=== PATIENT | female | born 1990 | race Caucasian/White ===

== ENCOUNTER → 2018-03-16 10:04 | Outpatient (CLI) | payer BC, SELFPAY ==
--- NOTE | 2018-03-16 10:15 | XR_ITS ---
EXAM: XR lumbar spine min 4V HISTORY: Low back pain ITS.REASON: LUMBAGO ORDERING PHYSICIAN: Yani Mccann PATIENT AGE: 27 years COMPARISON: FINDINGS: Normal alignment. No fracture or dislocation. No lytic or blastic change. There is decrease in the disc space at L5-S1 with small endplate osteophytes inferiorly at L5. IMPRESSION: Degenerative disc disease L5-S1
== END ==
PROVIDERS: PCP Nurse Practitioner Family; Visit Provider Nurse Practitioner Family
DX: M54.42 Lumbago with sciatica, left side (principal); M54.41 Lumbago with sciatica, right side
CPT/HCPCS: 72110

== ENCOUNTER → 2021-12-17 17:24 | Outpatient (CLI) | payer BC, SELFPAY | PROVIDERS: PCP Family Medicine; Visit Provider Nurse Practitioner | DX: U07.1 COVID-19 (principal) | CPT/HCPCS: C9803; U0003; U0005 ==

== ENCOUNTER → 2022-02-06 13:43 | Outpatient (REF) | payer BC, SELFPAY ==
--- NOTE | 2022-02-06 13:48 | XR_ITS ---
FINAL REPORT CLINICAL HISTORY: REACTION TO TB TEST FINDINGS: Two views of the chest were obtained. The heart size and pulmonary vascularity are within normal limits. The mediastinum is normal. No acute pulmonary abnormality is identified. There is no active mycobacterial/fungal disease. There is no pneumothorax. The bony thorax is intact. IMPRESSION: No active cardiopulmonary disease. Reviewed, Interpreted and Dictated by Aj Wallis III, MD Transcribed by Dominique Morales Authenticated by Aj Wallis III, MD on 02/06/2022 02:52:52 PM [facility]
== END ==
LOC: RAD 13:43
PROVIDERS: PCP Family Medicine; Visit Provider Nurse Practitioner
DX: R76.11 Nonspecific reaction to tuberculin skin test without active tuberculosis (principal)
CPT/HCPCS: 71046

== ENCOUNTER → 2022-04-22 07:36 | Outpatient (CLI) | payer OTHER, SELFPAY ==
[2022-04-22 08:41] LABS: Basophils # 0.1 K/mm3 (0-0.2); Eosinophils # 0.2 K/mm3 (0.0-0.4); Eosinophils % 1.9 % (0.1-12.0); Hematocrit 41.1 % (37.0-47.0); Hemoglobin 14.1 g/dL (12.2-16.2); Lymphocytes # 2.3 K/mm3 (0.7-4.5); Mean Corpuscular HGB Conc 34.4 g/dL (31.8-35.4); Mean Corpuscular Hemoglobin 31.1 pg (27.0-31.2); Mean Corpuscular Volume 90.4 fl (81-99); Mean Platelet Volume 8.3 fl (7.4-10.4); Monocytes # 0.4 K/mm3 (0.1-1.0); Monocytes % 3.5 % (1.7-9.3); Neutrophils # 7.1 K/mm3 (1.8-7.8); Neutrophils % 70.7 % (37.0-80.0); Platelet Count 282 K/mm3 (142-424); Red Blood Count 4.55 M/mm3 (4.20-5.40); Red Cell Distribution Width 13.3 % (11.5-17.5); White Blood Count 10.1 K/mm3 (4.8-10.8)
[2022-04-22 08:59] LABS: Alanine Aminotransferase 11 U/L (12-78); Albumin Level 3.9 g/dl (3.5-5.0); Albumin/Globulin Ratio 1.4 (1.1-1.8); Alkaline Phosphatase 73 U/L (38-126); Anion Gap 11.4 mEq/L (5-15); Aspartate Amino Transferase 19 U/L (14-36); Blood Urea Nitrogen 6 mg/dl (7-17); Calcium 9.4 mg/dl (8.4-10.2); Carbon Dioxide 26 mmol/L (22.0-30.0); Chloride 107 mmol/L (98-107); Cholesterol 221 mg/dl (140-200); Estimated Glomerular Filt Rate 117 ml/min (>60); GFR (African American) 142 ML/MIN (>60); Globulin 2.7 g/dL (1.3-3.2); Glucose 112 mg/dl (74-100); HDL Cholesterol 37 mg/dl (40-60); Potassium 4.4 mmoL/L (3.5-5.1); Sodium 140 mmol/L (136-145); Total Protein,Serum 6.6 g/dl (6.3-8.2); Triglycerides 238 mg/dl (30-150); VLDL Cholesterol 48 mg/dL (0-40)
[2022-04-22 09:09] LABS: Bilirubin,Total < 0.1 mg/dl (0.2-1.3)
[2022-04-22 09:10] LABS: Hemoglobin A1C 5.1 % (4.0-6.0)
[2022-04-22 09:12] LABS: Direct LDL Cholesterol 138.64 mg/dL (100-129)
[2022-04-22 09:18] LABS: Free Thyroxine Index 2.7 ug/dL (5.93-13.13); T4 (Thyroxine) 11.1 ug/dl (5.53-11.0); Triiodothryronine (T3) Uptake 24 % (23.5-40.5)
[2022-04-22 09:25] LABS: Iron 47 ug/dL (37-170)
[2022-04-22 09:31] LABS: Thyroid Stimulating Hormone 2.43 uIU/mL (0.465-4.68)
[2022-04-22 09:34] LABS: Total Iron Binding Capacity 334 ug/dL (265-497)
[2022-04-22 09:52] LABS: Vitamin B12 776 pg/mL (239-931)
[2022-04-30 10:46] LABS: 1,25 Dihydroxy Vitamin D 55 pg/mL (.); 1,25-Dihydroxy, Vitamin D-2 <10 pg/mL (.); 1,25-Dihydroxy, Vitamin D-3 55 pg/mL (.)
== END ==
PROVIDERS: PCP Nurse Practitioner Family; Visit Provider Nurse Practitioner Psychiatric/Mental Health
DX: Z00.00 Encounter for general adult medical examination without abnormal findings (principal); Z79.899 Other long term (current) drug therapy
CPT/HCPCS: 36415; 80053; 80061; 82607; 82652; 83036; 83540; 83550; 84436; 84443; 84479; 85025

== ENCOUNTER → 2022-07-03 19:48 | Outpatient (CLI) | payer OTHER, SELFPAY ==
[2022-07-15 12:53] VITALS: BMI 29.9
== END ==
LOC: INF 19:50 → UTC.OUT 07-15 14:31
PROVIDERS: PCP Nurse Practitioner Family; Visit Provider Nurse Practitioner Family
DX: J06.9 Acute upper respiratory infection, unspecified (principal)
CPT/HCPCS: 96372; J0696

== ENCOUNTER → 2022-08-15 12:35 | Outpatient (CLI) | payer OTHER, SELFPAY | PROVIDERS: PCP Nurse Practitioner Family; Visit Provider Nurse Practitioner | DX: M54.50 Low back pain, unspecified (principal) | CPT/HCPCS: 96372 ==

== ENCOUNTER → 2023-01-19 07:56 | Outpatient (CLI) | payer OTHER, SELFPAY ==
[2023-01-19 09:32] VITALS: BMI 34.9
== END ==
PROVIDERS: PCP Nurse Practitioner Family; Visit Provider Family Medicine
DX: Z71.3 Dietary counseling and surveillance (principal); E66.9 Obesity, unspecified; Z68.34 Body mass index [BMI] 34.0-34.9, adult
CPT/HCPCS: 97802

== ENCOUNTER → 2023-03-23 09:50 | Outpatient (CLI) | payer OTHER, SELFPAY ==
[2023-03-23 09:20] LABS: Basophils % 0.4 % (0.1-2.0); Eosinophils # 0.2 K/mm3 (0.0-0.4); Eosinophils % 2.8 % (0.1-12.0); Hematocrit 40.3 % (37.0-47.0); Hemoglobin 13.9 g/dL (12.2-16.2); Lymphocytes # 1.8 K/mm3 (0.7-4.5); Lymphocytes % 22.4 % (10-50); Mean Corpuscular HGB Conc 34.4 g/dL (31.8-35.4); Mean Corpuscular Hemoglobin 30.3 pg (27.0-31.2); Mean Corpuscular Volume 88.3 fl (81-99); Mean Platelet Volume 9.9 fl (7.4-10.4); Monocytes # 0.5 K/mm3 (0.1-1.0); Monocytes % 6.8 % (1.7-9.3); Neutrophils # 5.4 K/mm3 (1.8-7.8); Neutrophils % 67.6 % (37.0-80.0); Platelet Count 246 K/mm3 (142-424); Red Blood Count 4.57 M/mm3 (4.20-5.40); Red Cell Distribution Width 13.1 % (11.5-17.5)
[2023-03-23 09:39] LABS: Alanine Aminotransferase 19 U/L (12-78); Albumin Level 4.4 g/dl (3.5-5.0); Albumin/Globulin Ratio 1.8 (1.1-1.8); Alkaline Phosphatase 61 U/L (38-126); Anion Gap 14.6 mEq/L (5-15); Aspartate Amino Transferase 24 U/L (14-36); Bilirubin,Total 0.3 mg/dl (0.2-1.3); Blood Urea Nitrogen 5 mg/dl (7-17); Calcium 9.7 mg/dl (8.4-10.2); Carbon Dioxide 25 mmol/L (22.0-30.0); Chloride 104 mmol/L (98-107); Chol/HDL Ratio 4.8 (1-3.5); Cholesterol 155 mg/dl (140-200); Estimated Glomerular Filt Rate 117 ml/min (>60); GFR (African American) 141 ML/MIN (>60); Globulin 2.5 g/dL (1.3-3.2); Glucose 88 mg/dl (74-100); HDL Cholesterol 32 mg/dl (40-60); Potassium 3.6 mmoL/L (3.5-5.1); Sodium 140 mmol/L (136-145); Total Protein,Serum 6.9 g/dl (6.3-8.2); Triglycerides 113 mg/dl (30-150); VLDL Cholesterol 23 mg/dL (0-40)
[2023-03-23 09:48] LABS: Hemoglobin A1C 4.9 % (4.0-6.0)
[2023-03-23 09:50] LABS: Direct LDL Cholesterol 109.02 mg/dL (100-129)
[2023-03-23 10:10] LABS: Thyroid Stimulating Hormone 1.34 uIU/mL (0.465-4.68)
== END ==
PROVIDERS: PCP Nurse Practitioner Family; Visit Provider Nurse Practitioner Family
DX: R53.83 Other fatigue (principal); E78.5 Hyperlipidemia, unspecified; I10 Essential (primary) hypertension; Z13.1 Encounter for screening for diabetes mellitus; Z79.899 Other long term (current) drug therapy
CPT/HCPCS: 80053; 80061; 83036; 84443; 85025

== ENCOUNTER → 2023-06-25 09:52 | Outpatient (CLI) | payer OTHER, SELFPAY ==
--- NOTE | 2023-06-25 09:52 | NM_ITS ---
FINAL REPORT TECHNIQUE: Sequential anterior images were obtained after the ingestion of 2 eggs, 2 pieces of toast, and water radiolabeled with 0.516 mCi technetium 99M sulfur colloid. CLINICAL HISTORY: chronic nausea, vomiting undigested food 10:15am 0.516 mci tc sulfur colloid inj into 2 eggs, 2 toast and water COMPARISON: None FINDINGS: GASTRIC EMPTYING SCAN Static images show normal emptying of the stomach into the small bowel. Based on the time activity curve, the estimated half-emptying time is 93 minutes which is mildly abnormal. IMPRESSION: Mildly abnormal gastric emptying study. Reviewed, Interpreted and Dictated by Ousmane Knott MD Transcribed by Leila Singh Authenticated and . [facility]
== END ==
PROVIDERS: PCP Nurse Practitioner Family; Visit Provider Nurse Practitioner Family
DX: R11.2 Nausea with vomiting, unspecified (principal)
CPT/HCPCS: 78264; A9541

== ENCOUNTER 2024-02-24 08:00 | Emergency (ER) | payer OTHER, SELFPAY ==
[2024-02-24 08:05] VITALS: BP 135/95; PULSE 87; RESP 18; TEMP 36.6; O2SAT 99; BMI 31.4
--- NOTE | 2024-02-24 08:27 | ED_ITS ---
Discharge Plan Disposition Patient Disposition: Home, Self-Care Condition: Good Prescriptions Prescriptions: New cyclobenzaprine 10 mg Tablet 10 mg PO BID PRN (Reason: Muscle Spasm) Qty: 20 0RF methylprednisolone 4 mg Tablets,Dose Pack 4 mg PO DIRECTED 6 Days Qty: 21 0RF Rx Instructions: Take 1 pack as directed for 6 days No Action desvenlafaxine succinate [Pristiq] 100 mg tablet extended release 24 hr 50 mg PO DAILY Qty: 30 3RF PNV no.365-gslr-exvcw acid 28 mg iron- 800 mcg tablet 1 tab PO DAILY semaglutide 2 mg/dose (8 mg/3 mL) pen injector 2 mg SQ WEEKLY Qty: 3 2RF omeprazole 20 mg capsule,delayed release(DR/EC) 20 mg PO DAILY Qty: 90 1RF nebivolol [Bystolic] 2.5 mg tablet See Rx Instructions .ROUTE .COMPLEX Rx Instructions: TAKE ONE TABLET BY MOUTH EVERY DAY Referrals Follow up/Referrals: Monique Stoll APRN [Primary Care Provider] - See instructions Activity Restrictions/Add. Instructions Additional Instructions/Restrictions: Go home and rest. It would be best if you rested tomorrow too. No heavy lifting. No twisting. Take the oral medications as directed. The muscle relaxer (cyclobenzaprine--Flexeril) will make you drowsy, so don't drive or operate heavy machinery after taking it. Don't start the oral steroids (medrol dose pack) until tomorrow, since you had the shots in here today. Follow up with your regular doctor. GO TO THE ER FOR ANY WORSENING SYMPTOMS OR CONCERN, ESPECIALLY BOWEL OR BLADDER ISSUES, SADDLE AREA NUMBNESS, FEVER, ETC Clinical Impressions Clinical Impression: Low back pain with sciatica Instructions Patient Instructions: DI for Low Back Pain, DI for Sciatica, Ketorolac Injection, Dexamethasone Injection Discharge ED Provider: Ivan Lopez [facility] General Stated complaint: Back Pain Mode of Arrival: Ambulatory Source of Information: Patient Limitations: No Limitations Time Seen by Provider: 02/24/24 08:27 Description of Symptoms (Recalled from Triage Doc. by RN): Pt's symptoms are lower back pain. HEENT Symptoms (Recalled from RN notes): No Resp Symptoms (Recalled from RN notes): No Skin Symptoms (Recalled from RN notes): No MS Symptoms (Recalled from RN notes): Yes Functional Status (Recalled from RN notes): n/a History of Present Illness Provider Complaint: She states that for the past 3 days she has had worsening low back pain that radiates down her right leg. She denies any recent trauma or injury. She denies any urinary complaints. She has had similar episodes of this pain before. Related Data Home Medications Medication Instructions Recorded Confirmed vitamins no.121-iron 28 1 tab PO DAILY 04/23/23 02/24/24 mg-folic acid 800 mcg tablet nebivolol 2.5 mg tablet (Bystolic) See Rx Instructions .Route .COMPLEX 02/24/24 02/24/24 Previous Rx's Medication Instructions Recorded semaglutide 2 mg/dose (8 mg/3 mL) 2 mg (0.75 mL) SQ WEEKLY #3 mL 06/18/23 subcutaneous pen injector desvenlafaxine succinate 100 mg 50 mg (1/2 x 100 mg) PO DAILY #30 08/20/23 tablet,extended release 24 hr tabs (Pristiq) omeprazole 20 mg capsule,delayed 20 mg PO DAILY #90 caps 09/23/23 release cyclobenzaprine 10 mg tablet 10 mg PO BID PRN Muscle Spasm #20 02/24/24 tabs methylprednisolone 4 mg tablets in 4 mg PO DIRECTED 6 days #21 tabs 02/24/24 a dose pack Allergies Allergy/AdvReac Type Severity Reaction Status Date / Time No Known Allergies Allergy Verified 02/24/24 08:17 Worker's Comp Is this a Worker's Comp case?: No [facility] Disclaimer: The information contained in this section may have been updated after the patient was seen, as this information can be updated by other users. Medical History (Updated 02/24/24 @ 08:41 by Ivan Lopez APRN) Major depressive disorder BMI 30.0-30.9,adult BMI 31.0-31.9,adult BMI 32.0-32.9,adult BMI 33.0-33.9,adult Establishing care with new doctor, encounter for Normal vaginal delivery BMI 34.0-34.9,adult Generalized anxiety disorder Surgical History History of appendectomy Hx of tonsillectomy Family History Father Diabetes type 2 Family/Other Cancer ovarian Mother Thyroid disorder hypothyroidism Grandmother Diabetes Type 2 Hypertension Social History Smoking Status: Current every day smoker tobacco type: e-cigarettes alcohol intake: never substance use type: denies use current occupational status: employed Travel in the last 8 weeks: None household members: spouse and children number of children: 3 ROS Obtained: Yes All systems reviewed & no additional complaints except as documented Constitutional Constitutional: Denies chills and Denies fever(s) Eyes Eyes: Denies eye discharge ENT Ears, Nose, Mouth, and Throat: Denies dizziness, Denies otalgia, Denies neck pain and Denies sore throat Cardiovascular Cardiovascular: Denies chest pain Respiratory Respiratory: Denies shortness of breath, Denies chest congestion, Denies cough, Denies stridor and Denies wheezing Gastrointestinal Gastrointestingal: Denies nausea or vomiting Genitourinary Female Genitourinary: Reports as per HPI, Denies dysuria, Denies urinary frequency, Denies urinary incontinence, Denies urinary hesitancy and Denies urinary urgency Musculoskeletal Musculoskeletal: Reports as per HPI, Reports back pain and Denies neck pain Integumentary/Breasts Skin/Breast: Denies rash Neurologic Neurologic: Denies dizziness, Denies paresthesias and Reports radicular pain Allergic/Immunologic Allergic/Immunologic: Denies wheezing Physical Exam General General appearance: alert and in no apparent distress Head Head exam: atraumatic, normocephalic and normal inspection Eye Eye exam: Present normal appearance, PERRL and EOMI ENT ENT exam: Present normal exam, normal oropharynx, mucous membranes moist, TM's normal bilaterally and normal external ear exam Neck Neck exam: Present normal inspection, full ROM and trachea midline; Absent meningismus or lymphadenopathy Chest Chest inspection: Present normal inspection and symmetric chest wall rise; Absent tenderness Respiratory Respiratory exam: Present normal lung sounds bilaterally; Absent respiratory distress Cardiovascular Cardiovascular exam: Present regular rate and normal rhythm; Absent JVD Abdominal Exam Abdominal exam: Present soft and normal bowel sounds; Absent distention, tenderness or guarding Extremities Exam Extremities exam: Present normal inspection, full ROM and normal capillary refill; Absent calf tenderness Back Exam Back exam: Present normal inspection; Absent tenderness Neurological Exam Neurological exam: Present alert, oriented X3, CN II-XII intact, normal gait and reflexes normal; Absent motor sensory deficit Expanded Neurological Exam Cranial nerves: Normal: EOM function (II, III, IV, ), facial sensation (V), facial palsy (VII), gag reflex (IX), spinal accessory function (XI) and tongue deviation (XII) Cerebellar function: normal gait Motor strength - LUE: 5/5 Motor strength - RUE: 5/5 Motor strength - LLE: 5/5 Motor strength - RLE: 5/5 Sensory exam upper extremity: Normal: light touch and 2 point discrimination Sensory exam lower extremity: Normal: light touch and 2 point discrimination DTR: 2+: biceps (L), biceps (R), patellar (L), patellar (R), Achilles tendon (L) and Achilles tendon (R) Spinal cord function: Absent saddle anesthesia Psychiatric Psychiatric exam: Present normal affect and normal mood Skin Skin exam: Present warm, dry, intact and normal color Lymphatic Lymphatic Findings: no adenopathy Medical Decision Making Medical Records Medical records reviewed: No I reviewed the patient's medical records. Tree Inquiry Pt receiving controlled substance: No Vital Signs: 02/24/24 08:05 Temperature 97.9 F Temperature Source Oral Pulse Rate [Right Radial] 87 Respiratory Rate 18 Blood Pressure [Right Arm] 135/95 H Blood Pressure Mean [Right Arm] 108 Blood Pressure Source [Right Arm] Automatic Cuff Blood Pressure Position [Right Arm] Sitting 02 Sat by Pulse Oximetry 99 Oxygen Delivery Method Room Air
[2024-02-24] MEDS: DEXAMETHASONE 4MG/ML 1ML VIAL 8 MG IM (08:33)
[2024-02-24] MEDS: KETOROLAC 60MG/2ML VIAL 60 MG IM (08:33)
[2024-02-24 08:50] VITALS: BP 135/95; PULSE 87; RESP 18; TEMP 36.6; O2SAT 99
== END 2024-02-24 08:50 | disposition home or self-care (01) ==
PROVIDERS: Emergency Provider Nurse Practitioner Family; PCP Nurse Practitioner Family
DX: M54.41 Lumbago with sciatica, right side (principal); F17.210 Nicotine dependence, cigarettes, uncomplicated
CPT/HCPCS: 96372; 99204; 99212; G0463

== ENCOUNTER 2025-01-30 13:49 | Outpatient (CLI) | payer OTHER, SELFPAY ==
[2025-01-30 13:36] LABS: Microscopic, Urine URINE MICROSCOPIC (MICROSCOPIC)
[2025-01-30 14:00] LABS: Basophils % 0.3 % (0.1-2.0); Eosinophils # 0.1 K/mm3 (0.0-0.4); Eosinophils % 0.4 % (0.1-12.0); Hematocrit 39.8 % (37.0-47.0); Hemoglobin 14.1 g/dL (12.2-16.2); Lymphocytes # 3.1 K/mm3 (0.7-4.5); Lymphocytes % 25.7 % (10-50); Mean Corpuscular HGB Conc 35.4 g/dL (31.8-35.4); Mean Corpuscular Hemoglobin 31.5 pg (27.0-31.2); Mean Corpuscular Volume 88.8 fl (81-99); Mean Platelet Volume 10.6 fl (7.4-10.4); Monocytes # 0.6 K/mm3 (0.1-1.0); Monocytes % 5.2 % (1.7-9.3); Neutrophils # 8.2 K/mm3 (1.8-7.8); Neutrophils % 68.4 % (37.0-80.0); Platelet Count 244 K/mm3 (142-424); Red Blood Count 4.48 M/mm3 (4.20-5.40); Red Cell Distribution Width 11.9 % (11.5-17.5); White Blood Count 12.1 K/mm3 (4.8-10.8)
[2025-01-30 14:26] LABS: Albumin Level 4.8 g/dl (3.5-5.0); Chloride 102 mmol/L (98-107)
[2025-01-30 14:27] LABS: Potassium 4.5 mmoL/L (3.5-5.1); Sodium 138 mmol/L (136-145)
[2025-01-30 14:29] LABS: Alanine Aminotransferase 23 U/L (12-78); Albumin/Globulin Ratio 2.3 (1.1-1.8); Alkaline Phosphatase 61 U/L (38-126); Anion Gap 15.5 mEq/L (5-15); Aspartate Amino Transferase 34 U/L (14-36); Bilirubin,Total 0.7 mg/dl (0.2-1.3); Blood Urea Nitrogen 7 mg/dl (7-17); Carbon Dioxide 25 mmol/L (22.0-30.0); Cholesterol 206 mg/dl (140-200); Estimated Glomerular Filt Rate 115 ml/min (>60); GFR (African American) 139 ML/MIN (>60); Globulin 2.1 g/dL (1.3-3.2); Iron 116 ug/dL (37-170); Phosphorous 2.7 mg/dl (2.5-4.5); Total Protein,Serum 6.9 g/dl (6.3-8.2); Triglycerides 125 mg/dl (30-150); VLDL Cholesterol 25 mg/dL (0-40)
[2025-01-30 14:30] LABS: Calcium 9.5 mg/dl (8.4-10.2); Chol/HDL Ratio 4.2 (1-3.5); Glucose 65 mg/dl (74-100); HDL Cholesterol 49 mg/dl (40-60)
[2025-01-30 14:40] LABS: Total Iron Binding Capacity 310 ug/dL (265-497)
[2025-01-30 14:47] LABS: 25-OH Vitamin D, Total 26.4 ng/mL (30-100)
[2025-01-30 14:48] LABS: Free T4 (Free Thyroxine) 1.02 ng/dl (0.78-2.19)
[2025-01-30 14:52] LABS: Direct LDL Cholesterol 125.22 mg/dL (100-129)
[2025-01-30 15:02] LABS: Thyroid Stimulating Hormone 2.25 uIU/mL (0.465-4.68)
[2025-01-30 15:06] LABS: Ferritin 72.1 ng/ml (6.24-137)
[2025-01-30 15:15] LABS: HIV Combo NEGATIVE (Negative)
[2025-01-30 15:20] LABS: Appearance,Urine CLEAR (Clear); Bilirubin,Urine Negative (Negative); Blood, Urine Negative (Negative); Color,Urine YELLOW (Yellow); Glucose,Urine (UA) Negative (Negative); Hepatitis C Ab Qual. W/ RFX NEGATIVE (Negative); Ketones,Urine Negative (Negative); Leukocyte Esterase,Urine Negative (Negative); Nitrate,Urine Negative (Negative); PH,Urine 7.5 (5.0-8.5); Protein,Urine Negative (Negative); Specific Gravity, Urine 1.015 (1.005-1.030); Urobilinogen,Urine 0.2 EU/dl (0.2)
[2025-01-30 15:47] LABS: Bacteria,Urine Trace /lpf; Squamous Epithelial Cell,Urine Occasional #/hpf (0-5)
[2025-01-30 16:32] LABS: Vitamin B12 784 pg/mL (239-931)
== END 2025-01-30 23:59 | disposition home or self-care (01) ==
LOC: LAB.DROPOF 13:49
PROVIDERS: PCP Nurse Practitioner Family; Visit Provider Nurse Practitioner Family
DX: R53.83 Other fatigue (principal); E78.5 Hyperlipidemia, unspecified; Z11.4 Encounter for screening for human immunodeficiency virus [HIV]; Z11.59 Encounter for screening for other viral diseases; F32.9 Major depressive disorder, single episode, unspecified; Z13.1 Encounter for screening for diabetes mellitus; M54.50 Low back pain, unspecified; K21.9 Gastro-esophageal reflux disease without esophagitis; I10 Essential (primary) hypertension; F41.1 Generalized anxiety disorder; G47.33 Obstructive sleep apnea (adult) (pediatric); R41.3 Other amnesia
CPT/HCPCS: 80053; 80061; 81001; 82306; 82607; 82728; 83036; 83540; 83550; 83735; 84100; 84439; 84443; 85025; 86803; 87086; 87389

== ENCOUNTER 2025-02-07 09:54 | Outpatient (CLI) | payer OTHER, SELFPAY ==
--- NOTE | 2025-02-07 17:15 | MR_ITS ---
FINAL REPORT TECHNIQUE: Multiplanar MR without contrast CLINICAL HISTORY: chronic low back pain with radiculopathy RIGHT SIDED BACK PAIN X MANY YEARS FEELS LIKE A SPASM PAIN GOES FROM HIP TO KNEE FINDINGS: Sagittal images show normal vertebral height. Alignment is normal. Marrow signal changes at the L4-5 and L5-S1 endplates related to discogenic disease. L1-2: Unremarkable L2-3: Unremarkable L3-4: Unremarkable L4-5: Moderate annular disc bulge with a moderate left paracentral disc protrusion. Central canal stenosis with left L5 nerve root compression. L5-S1: Moderate annular disc bulge and facet arthropathy. Borderline central canal stenosis and mild neuroforaminal narrowing. IMPRESSION: Degenerative disease most pronounced at L4-5 with canal stenosis and left L5 nerve root compression. Reviewed, Interpreted and Dictated by Alicia Arroyo MD Transcribed by Perla Kothari Authenticated and [facility]
== END 2025-02-07 23:59 | disposition home or self-care (01) ==
LOC: RAD 09:54
PROVIDERS: PCP Nurse Practitioner Family; Visit Provider Nurse Practitioner Family
DX: M54.50 Low back pain, unspecified (principal)
CPT/HCPCS: 72148

== ENCOUNTER 2025-02-27 17:00 | Outpatient (RCR) | payer OTHER, SELFPAY ==
--- NOTE | 2025-02-23 16:12 | HMH.PTOPEV ---
PT Outpatient Evaluation Rehab PT Outpatient Evaluation Start: 02/23/25 07:48 Freq: Status: Active Protocol: Document 02/23/25 12:59 BONIFACIO (Rec: 02/23/25 16:10 BONIFACIO [id number]) E-signed By Rl Weber, PT Outpatient Therapy Subjective History Subjective History Pt is a 34 yof who is referred to [facility] outpatient PT with complaints of R sided LBP and R sided hip pain. The pt reports that her pain began nearly 7 years ago after the of her first child. She reports that the pain will very rarely shoot down her R leg but is almost constantly aching in the right side of her lower back and R hip. She reports that the pain in her R hip feels very deep. The pt underwent and MRI which showed L5 nerve root compression on the left side, however, the pt adamantly states that she has no issue whatsoever with her left side. The pt reports that her pain always worsens a week prior to menses and during menses, then will lessen for a few weeks. The pt reports that any position in which she is bent, especially for longer periods, such as placing an IV will exacerbate her symptoms. PMH: HTN, GERD, Anxiety, Depression Occupation: ER Nurse New diagnosis of cancer in past 12 No months? Chief Complaint Pain Symptom Type Ache,Sharp Symptoms Relieved By Ice,OTC Meds Symptoms Aggravated By Sitting,Bending/Stooping, Physical Activity,Walking Prior Functional Limitations None Current Functional Limitations Lifting,Housework,Standing, Sitting,Squatting,Walking, Stairs Symptom Description Constant but Variable,Activity Dependent Level of pain today (0-10) 4 Pain scale - at its best (0-10) 2 Pain scale - at its worst (0-10) 7 Lumbopelvic Eval Posture Thoracic Spine Posture Standing Position Neutral Lumbar Spine Posture Standing Position Neutral Assistive device Assistive Devices None / NA Palapation tenderness right lumbar spinal tenderness Yes: L4-S1 TTP 3/4 paraspinal tenderness Yes: L4-S1 TTP 3/4 Lumbar/Sacral Palpation Findings Tenderness Accessory Movement L4 right L5 right S1 right Range of Motion Lumbar Spine Active Flexion Range of 75% Motion (degrees) Lumbar Spine Active Extension Range of 50% Motion (degrees) Left Lumbar Spine Lateral Flexion Active 75% Range of Motion (degrees) Right Lumbar Spine Lateral Flexion 75% Active Range of Motion (degrees) Lumbar Spine ROM Limitations Soft Tissue Tightness,Pain Manual Muscle Test Right Knee Extension Strength Grade 4- Good- Knee Flexion Strength Grade 4- Good- Hip Flexion Strength Grade 3+ Fair+ Hip Abduction Strength Grade 2 Poor Hip Adduction Strength Grade 2+ Poor+ Hip Extension Strength Grade 2 Poor DTR Rt Patellar 2+ Lt Patellar 2+ Rt Gastroc/Soleus 2+ Lt Gastroc/Soleus 2+ Altered Sensation Bilateral Comment Intact to LT globally Special Tests Lumbar Spine Screen Positive Forward Bending Test- Sitting Negative Left,Negative Right Hip Scouring (Quadrant) Test Positive Right Hip Georgi (LIDIA) Test Positive Right Hip Jonh Test Negative Right Hip Piriformis Test Negative Right Hip Bowstring (Cram) Test Negative Right Sciatic Nerve Tension Test Negative Right Reverse Sciatic Nerve Tension Test Negative Right Hip 90-90 Straight Leg Raise Test Negative Right Unilateral Straight Leg Raise (Lasegue) Negative Right Test Crossed Straight Leg Raise Test Negative Left,Negative Right Srikanth Test Negative Hip Sania's Test Negative Right Sacroiliac Joint Compression Test Positive Right Sacroiliac Joint Distraction Test Positive Right Oswestry Index Section 1 Pain Intensity The pain is moderate and does not vary much Section 2 Personal Care (Washing,Dresing) increase the pain, but I manage not to change my way of doing it Section 3 Lifting I can lift heavy weights, but it gives me extra pain Section 4 Walking I cannot walk more than one mile wihtout increasing pain Section 5 Sitting I can sit in my favorite chair for as long as I like Section 6 Standing I have some pain on standing, but it does not increase with time Section 7 Sleeping Because of my pain, my normal night's sleep is less than 6 hours sleep Section 8 Social Life My social life is normal and gives me no extra pain Section 9 Traveling I get some pain when traveling , but none of my usual forms of travel m Section 10 Changing Degreee of Pain My pain is gradually getting worse Score and Risk Level Oswestry Sc 17 Oswestry Risk Level Moderate Disability Outpatient Therapy Assessment Impairments Problems/Impairmments Palpation Tenderness,Impaired Range of Motion,Impaired Strength,Impaired Walking, Impaired Standing,Impaired Lifting,Impaired Household Care,Impaired Work Activities, Subjective C/O Pain Prognosis Rehab Potential Good Comment w HEP compliance Clinical Impression Consistent with Diagnosis Yes Consistent with SI instability Short Term Goals Number of Weeks 4 Decreased Palpation Tenderness Yes: 1-2/4 TTP Increase Range of Motion Yes: 50-75% Pain-free AROM of Lumbar spine Increase Strength Yes: 3+/5 to R hip/knee Improve Oswestry Score Yes: Mild Disability Decrease Subjective C/O Pain Yes: 10 with above assessment Patient to be Ind w/ HEP Yes Skilled Nursing Goals Number of Weeks 8 Decreased Palpation Tenderness Yes: 0-1/4 to TTP Assessment Above Increase Range of Motion Yes: 0-1/4 to TTP Assessment Above Increase Strength Yes: 4-4+/5 to TTP assessment Above Restore Ability to Lift Objects to Waist Yes: 20# with proper lifting Level mechanics without increasing pain Improve Ability For Household Care Yes: Cook/Clean without increasing pain Improve Tolerance to Work Activities Yes: Normal Day's work without increasing pain Improve Oswestry Score Yes: No disability Decrease Subjective C/O Pain Yes: 2-10 with above assessment Patient to be Ind w/ Advanced HEP Yes Outpatient Therapy Plan of Care Treatment Plan May Include Therapeutic Exercise Including Home Yes Exercise Program Manual Therapy Techniques Yes Neuromuscular Re-education Yes Therapeutic Activities to Return to Yes Previous Functional/Work Level Gait Training Yes ADL/Self Care Education Yes Mechanical Traction Yes Dry Needling Yes Thermal Modalities Yes Electrical Stimulation Yes Manual Lymphatic Drainage Yes Eval/Re-Eval Yes Frequency Times per week 1-2 Duration Number of Weeks 8 Addendums This patient is a candidate for social No or vocational rehab? Patient/Guardian verbally acknowledges Yes understanding of treatment program and consents to further treatment? Patient/Guardian verbally acknowledges Yes understanding of diagnosis, prognosis and goals for treatment? Eval Complexity PT Charges [id number] - Moderate Complexity Shoulder/Elbow Eval Shoulder Objective Measurements Elbow Objective Measurements PHYSICIAN CERTIFICATION: I certify the specified therapy services for Balwinder Brannon are required, authorized, and reviewed every 30 days.
== END 2025-02-27 23:59 | disposition home or self-care (01) ==
LOC: PT 17:00
PROVIDERS: PCP Nurse Practitioner Family; Visit Provider Nurse Practitioner Family
DX: M54.50 Low back pain, unspecified (principal)
CPT/HCPCS: 97110; 97163; 97530

== ENCOUNTER → 2025-03-10 10:51 | Outpatient (CLI) | payer OTHER, SELFPAY | LOC: SL 10:51 | PROVIDERS: PCP Nurse Practitioner Family; Visit Provider Nurse Practitioner Family | DX: R06.83 Snoring (principal); R53.83 Other fatigue | CPT/HCPCS: 95806 ==

== ENCOUNTER 2025-03-13 17:00 | Outpatient (RCR) | payer OTHER, SELFPAY | END 2025-03-15 23:59 | disposition home or self-care (01) | LOC: PT 17:00 | PROVIDERS: PCP Nurse Practitioner Family; Visit Provider Nurse Practitioner Family | DX: M54.50 Low back pain, unspecified (principal) | CPT/HCPCS: 97014; 97110; 97530; G0283 ==

== ENCOUNTER 2025-08-28 10:01 | Outpatient (CLI) | payer OTHER, SELFPAY ==
--- OUTSIDE RECORDS SUMMARY | 2025-08-28 10:10 | XMS_ITS | Clinical Summary ---
Author Organization [facility] Address [address] [place] [address] Care Team Providers Care Information Assurance Engineer Name Role Phone Иван Sauer MD Primary Care Provider + Allergies No known active allergies Medications desvenlafaxine (PRISTIQ) 100 MG 24 hr tablet Take 1 tablet by mouth Daily. 5 Active famotidine (PEPCID) 20 MG tablet Take 1 tablet by mouth Every 12 (Twelve) Hours. 5 Active lidocaine (LIDODERM) 5 % APPLY 1 PATCH TOPICALLY TO THE AFFECTED AREA ONCE DAILY AND LEAVE IN PLACE FOR 12 HOURS, THEN REMOVE AND LEAVE OFF FOR 12 HOURS 5 Active metaxalone (SKELAXIN) 800 MG tablet 1 tablet. 5 Active nebivolol (BYSTOLIC) 2.5 MG tablet 5 Active acetaminophen (TYLENOL) 325 MG tablet Take 2 tablets by mouth Every 6 (Six) Hours As Needed for Mild Pain. Active ibuprofen (ADVIL,MOTRIN) 200 MG tablet Take 1 tablet by mouth Every 6 (Six) Hours As Needed for Mild Pain. Active Active Problems Problem Noted Date Diagnosed Date Routine gynecological examination 10/08/2022 H/O abnormal cervical Papanicolaou smear 022 Overview (10/08/2022): Per patient Resolved Problems Problem Noted Date Diagnosed Date Resolved Date Gestational hypertension wit hout significant proteinuria during in third trimester, antepartum 08/26/2021 10/08/2022 Uterine size date discrepancy 08/02/2021 10/08/2022 First trimester 02/11/2021 History of gestational hypertension 02/11/2021 10/08/2022 Overview (06/26/2021): Baby asa 09/05/2019 10/08/2022 Elevated blood pressure affe cting in third trimester, antepartum 08/30/2019 Hypertension in , antepartum 08/22/2019 02/11/2021 Gestational hypertension 09/15/2017 08/11/2017 09/18/2017 Decreased movement aff ecting management of mother, antepartum 07/16/2017 09/18/2017 Immunizations Immunization Administration Dates Next Due COVID-19 (MODERNA) 1st,2nd,3rd Dose Monovalent 0 03/17/2022,02/19/2022 Family History Medical History Relation Name Comments Diabetes Father JR Other Father JR Respiratory Dis ease Diabetes Mother Keeley Thyroid disease Mother Keeley Cervical cancer Paternal Aunt Relation Name Status Comments Father JR Mother Keeley Paternal Aunt Social History Tobacco Use Types Packs/Day Years Used Date Smoking Tobacco: Former Cigarettes Q uit: 06/2024 Passive Smoke Exposure: Past Smokeless Tobacco: Never Comments:STATES OCCASIONALLY , ONCE A WEEK, TODAY Alcohol Use Standard Drinks/Week Comments No 0 (1 standard drink = 0.6 oz pur e alcohol) AUDIT-C Answer Date Recorded Q1: How often do you have a drink containing alc ohol? Never 11/08/2020 Average Number of Drinks Not on file 021 Frequency of Binge Drinking Not on file 05/2021 Exercise Vital Sign Answer Date Recorde d On average, how many days pe r week do you engage in moderate to strenuous exercise (like a brisk walk)? 0 days 11/08/2020 On average, how many minutes do you engage in exercise at this level? 0 min 11/08/2020 Hunger Vital Sign Answer Date Recorded Within the past 12 months, y ou worried that your food would run out before you got the money to buy more. Never true 11/08/19 21 Within the past 12 months, t he food you bought just didn't last and you didn't have money to get more. Never true 11/08/2020 PRAPARE - Transportation Answer Date Re corded In the past 12 months, has l ack of transportation kept you from medical appointments or from getting medications? No 05/2021 In the past 12 months, has l ack of transportation kept you from meetings, work, or from getting things needed for daily living? No 11/08/2020 Aurora Depression Scale Answer Date Recorded Aurora Depression Scale Total 2 10/11/2021 The thought of harming myself has occurred to me . Never 10/11/2021 Education Answer Date Recorded What is the highest level of school you have completed or the highest degree you have received? Associate degree: academic program 08/25/2021 Comments No Sex and Gender Information Value Date Recorded Sex Assigned at Not on file Legal Sex Female 1:55 PM EDT Gender Identity Not on file Sexual Orientation Not on file Occupation Industry Job Start Date Job End Date Registered Nurse Not on file Not on file Not on file Last Filed Vital Signs Vital Sign Reading Time Taken Comments Blood Pressure 126/84 10/08/2022 8:33 AM EST Pulse 80 08/28/2021 7:57 AM EDT Temperature 35.6 C (96 F) 03/08/2025 8:34 AM EDT Respiratory Rate 18 10/08/2022 8:33 AM EST Oxygen Saturation 98% 08/26/2021 8:00 AM EDT Inhaled Oxygen Concentration - - Weight 88.9 kg (196 lb) 03/08/2025 8:34 AM EDT Height 165.1 cm (5' 5 ) 03/08/2025 8:34 AM EDT Body Mass Index 32.62 03/08/2025 8:34 AM EDT Plan of Treatment Health Maintenance Due Date Last Done Comments TDAP/TD VACCINES (1 - Tdap) 2010 ANNUAL PHYSICAL 11/08/2021 11/08/2020 Annual Gynecologic Pelvic an d Breast Exam 10/09/2023 10/08/2022 INFLUENZA VACCINE 06/02/2025 08/24/2024 PAP SMEAR 10/08/2025 10/08/2022, 11/09/2020 HEPATITIS C SCREENING Completed 03/05/2021 Pneumococcal Vaccine 0-49 Aged Out No longer eligible based on patient's age to complete this topic Procedures Procedure Name Priority Date/Time Associated Diagnosis Comments LIQUID-BASED PAP SMEAR, [facility]) Routine 10/08/2022 9:24 AM EST Routine gynecological examination H/O abnormal cervical Papanicolaou smear OBSTETRIC PANEL Routine 03/05/2021 9:26 AM EDT , unspecified gestational age from Last 3 Months or Most Recently Relevant to Health Maintenance Results * LIQUID-BASED PAP SMEAR, [facility] ([facility]) (10/08/2022 9:24 AM EST) Reference Lab Report [facility] [address] [place] [address] or [phone] Guillaume Veronica M.D., Rn Critical Care PATIENT NAME [facility]ATORY NO[facility] [address] NAKIA BRANNON [id number] AGE SEX SSN CLIENT REF # [id number] 31 1990 F [id number] [facility] JORDAN PEÑA REQUESTING Rik [place] [address] CHARIS NGUYEN DATE COLLECTED DATE RECEIVED DATE REPORTED 10/08/2022 10/08/2022 10/10/2022 ThinPrep Pap with Cytyc Imaging DIAGNOSIS: Negative for intraepithelial lesion or malignancy Multiple factors can influence accuracy of Pap tests; therefore, screening at regular intervals is necessary for early cancer detection. SPECIMEN ADEQUACY: SATISFACTORY FOR EVALUATION Transformation zone is present. SOURCE OF SPECIMEN: CERVICAL/ENDOCERV ICAL SLIDES: 1 CLINICAL HISTORY: Routine gynecological examination H/O abnormal cervical Papanicolaou smear DOT COMPLIANCE SPECIALIST: SWETHA MADSEN (ASCP) CPT CODES: [id number] 10/10/2022 7:08 AM EST [facility] ThinPrep Vial Cervix uteri structure / Unknown Collection / Unknown 10/08/2022 9:24 AM EST 10/08/2022 9:24 AM EST Charis Nguyen AUGER PRESS OPERATOR PATHOLOGY/CYTOLOGY ORDERABLES Final Result [facility]
[address] [place] [address], [place] [phone] * (ABNORMAL) Obstetric Panel (03/05/2021 9:26 AM EDT) Hepatitis B Surface Ag Negative Negative [facility] Hep C Virus Ab <0.1 0.0 - 0.9 s/co ratio [facility] Comment: Negative: < 0.8 Indeterminate: 0.8 - 0.9 Positive: > 0.9 The CDC recommends that a positive HCV antibody result be followed up with a HCV Nucleic Acid Amplification test (125399). RPR Non Reactive Non Reactive [facility] Rubella Antibodies, IgG 6.41 Immune >0.99 index [facility] Comment: Non-immune <0.90 Equivocal 0.90 - 0.99 Immune >0.99 ABO Type A [facility] Rh Factor Positive [facility] Comment: Please note: Prior records for this patient's ABO / Rh type are not available for additional verification. Antibody Screen Negative Negative [facility] WBC 10.1 3.4 - 10.8 x10E3/uL [facility] RBC 4.01 3.77 - 5.28 x10E6/uL [facility] Hemoglobin 12.5 11.1 - 15.9 g/dL [facility] Hematocrit 35.8 34.0 - 46.6 % [facility] MCV 89 79 - 97 fL [facility] MCH 31.2 26.6 - 33.0 pg [facility] MCHC 34.9 31.5 - 35.7 g/dL [facility] RDW 13.0 11.7 - 15.4 % [facility] Platelets 222 150 - 450 x10E3/uL [facility] Neutrophil Rel % 71 Not Estab. % [facility] Lymphocyte Rel % 23 Not Estab. % [facility] Monocyte Rel % 4 Not Estab. % [facility] Eosinophil Rel % 1 Not Estab. % [facility] Basophil Rel % 0 Not Estab. % [facility] Neutrophils Absolute 7.2(H) 1.4 - 7.0 x10E3/uL [facility] Lymphocytes Absolute 2.3 0.7 - 3.1 x10E3/uL [facility] Monocytes Absolute 0.4 0.1 - 0.9 x10E3/uL [facility] Eosinophils Absolute 0.1 0.0 - 0.4 x10E3/uL [facility] Basophils Absolute 0.0 0.0 - 0.2 x10E3/uL [facility] Immature Granulocyte Rel % 1 Not Estab. % [facility] Immature Grans Absolute 0.1 0.0 - 0.1 x10E3/uL [facility] Blood 03/05/2021 9:26 AM EDT 03/06/2021 Narrative [facility] - 03/07/2021 6:08 AM EDT Performed at: - [facility] [id number] Conservator Artifacts: Amarjit Pollock PhD, Phone: [phone] Patient Fasting: N us Anita Doshi APRN LAB BLOOD ORDERABLES Final Result [facility] [address] [place] [address], [place] [phone] [facility] [address] [place] [address], [place] [phone] from Last 3 Months or Most Recently Relevant to Health Maintenance Insurance Advance Directives * CPR (Attempt to Resuscitate) (Latest Code Status on File) Date Activated Date Inactivated Comments 08/26/2021 7:38 PM 08/28/2021 2:23 PM Question Answer Comments Code Status (Patient has no pulse and is not breathing): CPR (Attempt to Resuscitate) Medical Interventions (Patie nt has pulse or is breathing): Full * CPR (Attempt to Resuscitate) Date Activated Date Inactivated Comments 08/26/2021 12:46 AM 08/26/2021 7:38 PM Question Answer Comments Code Status (Patient has no pulse and is not breathing): CPR (Attempt to Resuscitate) Medical Interventions (Patie nt has pulse or is breathing): Full Level Of Support Discussed With: Patient * CPR (Attempt to Resuscitate) Date Activated Date Inactivated Comments 09/06/2019 12:03 AM 09/07/2019 2:17 PM Question Answer Comments Code Status (Patient has no pulse and is not breathing): CPR (Attempt to Resuscitate) Medical Interventions (Patie nt has pulse or is breathing): Full * CPR (Attempt to Resuscitate) Date Activated Date Inactivated Comments 09/05/2019 9:49 AM 09/06/2019 12:03 AM Question Answer Comments Code Status (Patient has no pulse and is not breathing): CPR (Attempt to Resuscitate) Medical Interventions (Patie nt has pulse or is breathing): Full * Full Code Date Activated Date Inactivated Comments 09/16/2017 9:20 PM 09/18/2017 8:58 PM Care Teams Information Assurance Engineer Relationship Specialty Start Date End Date Иван Sauer MD PCP - General Family Medicine 05/04/18
--- OUTSIDE RECORDS SUMMARY | 2025-08-28 10:10 | XMS_ITS | Encounter Summary ---
Author Organization [facility] Address [address] [place] [id number] Care Team Providers Care Auto Bench Mechanic Name Role Phone Иван Sauer MD Primary Care Provider + Reason for Visit * Reason Onset Date Comments Med Refill 03/24/2021 Encounter Details Date Type Department Care Team (Late st Contact Info) Description 03/24/2021 Refill [facility] OBGYN [address] [address] Arianna Heller MD [address] [place] [address] Social History Tobacco Use Types Packs/Day Years Used Date Smoking Tobacco: Former Cigarettes Q uit: 03/15/2017 Smokeless Tobacco: Never Comments:STATES OCCASIONALLY , ONCE [...] things needed for daily living? 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 08/26/2021 08/26/2021 08/26/2021 1:55 PM E DT documented as of this encounter Care Teams Auto Bench Mechanic Relationship Specialty Start Date End Date Иван Sauer MD PCP - General Family Medicine 05/04/18 documented as of this encounter
--- OUTSIDE RECORDS SUMMARY | 2025-08-28 10:10 | XMS_ITS | Encounter Summary ---
Author Organization [facility] Address [address] [place] [address] Care Team Providers Care Inspecting Engineer Name Role Phone Иван Sauer MD Primary Care Provider + Reason for Visit * Reason Onset Date Comments Med Refill 01/08/2022 Encounter Details Date Type Department Care Team (Late st Contact Info) Description 01/08/2022 Refill [facility] OBGYN [address] [place] [address] Rosalind Wilde, INDIRECT SALES REPRESENTATIVE Social History Tobacco Use Types Packs/Day Years [...] things needed for daily living? No 11/08/2020 Perry Depression Scale Answer Date Recorded Perry Depression Scale Total 2 10/11/2021 The thought [...] Diagnoses Not on filedocumented in this encounter Care Teams Inspecting Engineer Relationship Specialty Start Date End Date Иван Sauer MD PCP - General Family Medicine 05/04/18 documented as of this encounter
--- NOTE | 2025-08-28 10:11 | XR_ITS ---
FINAL REPORT CLINICAL HISTORY: low back pain, bilateral hip pain COMPARISON: None FINDINGS: LEFT HIP: 3 views of the left hip demonstrate no acute fracture or dislocation. The joint spaces appear normal. The visualized bony structures are well aligned. No soft tissue abnormality is seen. IMPRESSION: No acute bony abnormality. Reviewed, Interpreted and Dictated by Ousmane Knott MD Transcribed by Natalee English Authenticated and [facility]
--- NOTE | 2025-08-28 10:11 | XR_ITS ---
FINAL REPORT CLINICAL HISTORY: low back pain, bilateral hip pain COMPARISON: None FINDINGS: RIGHT HIP 3 views of the right hip demonstrate no acute fracture or dislocation. The joint spaces appear normal. The visualized bony structures are well aligned. No soft tissue abnormality is seen. IMPRESSION: No acute bony abnormality. Reviewed, Interpreted and Dictated by Ousmane Knott MD Transcribed by Natalee English Authenticated and [facility]
== END 2025-08-28 23:59 | disposition home or self-care (01) ==
LOC: RAD 10:01
PROVIDERS: PCP Nurse Practitioner Family; Visit Provider Nurse Practitioner Family
DX: M54.16 Radiculopathy, lumbar region (principal); M25.551 Pain in right hip; M25.552 Pain in left hip
CPT/HCPCS: 73502

== ENCOUNTER 2025-09-26 14:00 | Outpatient (RCR) | payer OTHER, SELFPAY ==
--- NOTE | 2025-09-12 09:34 | HMH.PTOPEV ---
PT Evaluation Rehab PT Outpatient Evaluation Start: 09/12/25 08:54 Freq: Status: Active Protocol: Document 09/12/25 08:54 BONIFACIO (Rec: 09/12/25 09:33 BONIFACIO [id number]) E-signed By Rl Weber, PT Outpatient Therapy Subjective History Subjective History Pt is a 34 yof who is referred to [facility] outpatient PT with complaints of R sided LBP and R sided hip pain. The pt reports that her pain began nearly 7 years ago after the of her first child. She reports that the pain will very rarely shoot down her R leg but is almost constantly aching in the right side of her lower back and R hip. She reports that the pain in her R hip feels very deep. The pt reports that her pain has began to transition to her L hip as well. The pt reports that her pain will worsen right before her menses. The pt underwent approximately 6 weeks of PT earlier this year, which she reports helped to lessen her symptoms. However, she decided to finish and did not keep up her exercises and now the pain has returned . The pt reports that any position in which she is bent , especially for longer periods, such as placing an IV will exacerbate her symptoms. 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 Chief Complaint Pain,Stiff Symptom Type Ache,Sharp,Dull Symptoms Relieved By OTC Meds Symptoms Aggravated Sitting,Standing,Bending/Stooping,Physical Activity, By Lifting Prior Functional None Limitations Current Functional Lifting,Standing,Sitting,Squatting,Walking,Stairs Limitations Symptom Description Constant but Variable,Activity Dependent Level of pain today 4 (0-10) Pain scale - at its 3 best (0-10) Pain scale - at its 9 worst (0-10) Lumbopelvic Eval Posture Thoracic Spine Neutral Posture Standing Position Lumbar Spine Posture Neutral Standing Position Assistive device Assistive Devices None / NA Gait Observation General Gait Pattern No Deviations/Normal Observation Palapation tenderness bilateral lumbar spinal Yes: L5-S1 tenderness Accessory Movement L5 bilateral S1 bilateral Range of Motion Lumbar Spine Active 100% Flexion Range of Motion (degrees) Lumbar Spine Active 100% Extension Range of Motion (degrees) Left Lumbar Spine 100% Lateral Flexion Active Range of Motion (degrees) Right Lumbar Spine 100% Lateral Flexion Active Range of Motion (degrees) Manual Muscle Test Bilateral Knee Extension 5 Normal Strength Grade Knee Flexion 5 Normal Strength Grade Hip Flexion Strength 4 Good Grade Hip Abduction 3 Fair Strength Grade Hip Adduction 3 Fair Strength Grade Hip Extension 3 Fair Strength Grade DTR Rt Patellar 2+ Lt Patellar 2+ Rt Gastroc/Soleus 2+ Lt Gastroc/Soleus 2+ Altered Sensation Bilateral Comment Intact to LT globally Special Tests Lumbar Spine Screen Positive Hip Scouring ( Positive Left,Positive Right Quadrant) Test Hip Georgi (LIDIA) Positive Left,Positive Right Test Sciatic Nerve Negative Left,Negative Right Tension Test Sacroiliac Joint Positive Left,Positive Right Compression Test Sacroiliac Joint Positive Left,Positive Right Distraction Test Oswestry Index Section 1 Pain Intensity The pain is moderate and does not vary much Section 2 Personal Care ( increase the pain and I find it necessary to change my Washing,Dresing) way of doing it Section 3 Lifting lifting heavy weights off the floor, but I can manage if they are Section 4 Walking I cannot walk more than one mile wihtout increasing pain Section 5 Sitting Pain prevents me from sitting for more than one hour Section 6 Standing I cannot stand more than 1 hour without increasing pain Section 7 Sleeping Because of my pain, my normal night's sleep is less than 6 hours sleep Section 8 Social Life My social life is normal and gives me no extra pain Section 9 Traveling I get extra pain while traveling, but it does not compel me to seek al Section 10 Changing Degreee of My pain is gradually getting worse Pain Score and Risk Level Oswestry Score 23 Oswestry Risk Level Moderate Disability Miscellaneous Dx PT Eval Objective Objective MMT: 2/5 to abdominals Outpatient Therapy Assessment Impairments Problems/ Palpation Tenderness,Impaired Strength,Impaired Walking Impairmments ,Impaired Sitting,Impaired Lifting,Impaired Household Care,Impaired Recreational Activities,Impaired Work Activities,Subjective C/O Pain,Impaired Self Care/Self Management Prognosis Rehab Potential Good Comment w HEP compliance Clinical Impression Consistent with Yes Diagnosis Consistent with SI Instability PT Patient Goals PT Patient Goals PT Short Term In 4 weeks: Patient Goals 1. Patient will report a 48 hour average pain of 5/10 on the numeric pain rating scale to demonstrate improvement in quality of life and increased functional capacity. 2. Patient will improve b/l abdominal, hip abductor and hip extensor strength upon manual muscle testing to 3+ /5 facilitate increased spinal stabilization and improved functional capabilities. 3. Patient will demonstrate a reduction in trigger point sensitivity to Grade 2 with manual palpation to improve comfort during activity and soft tissue mobility. 4. Patient will be able to stand for 30 minutes at one time to demonstrate independence with electric organ assembler and checker, such as washing her dishes. 5. Pt will demonstrate HEP compliance by completing prescribed HEP 4-5x/week. 6. Pt will improve SHIRLEY score to 18 to demonstrated improved functional mobility, overall improvement and improved quality of life. PT Skilled Nursing Patient In 8 weeks: Goals 1. Patient will report a 48 hour average pain of 2-3/10 on the numeric pain rating scale to demonstrate improvement in quality of life and increased functional capacity. 2. Patient will improve b/l abdominal, hip abductor and hip extensor strength upon manual muscle testing to 4/ 5 facilitate increased spinal stabilization and improved functional capabilities. 3. Patient will demonstrate a reduction in trigger point sensitivity to Grade 0-1 with manual palpation to improve comfort during activity and soft tissue mobility. 4. 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 5. Patient will be able to stand/walk for 1 hour at one time to demonstrate improved community ambulation for activities, such as grocery shopping and other activities. 6. Pt will be able to lift a 10# weight from floor with proper lifting mechanics and less than 2/10 pain to demonstrate the ability to lift items, such as grocery bags, milk jugs, laundry basket, etc. 7. Pt will improve SHIRLEY score to 13 to demonstrated improved functional mobility, overall improvement and improved quality of life. Outpatient Therapy Plan of Care Treatment Plan May Include Therapeutic Exercise Yes Including Home Exercise Program Manual Therapy Yes Techniques Neuromuscular Re- Yes education Therapeutic Yes Activities to Return to Previous Functional/Work Level Gait Training Yes ADL/Self Care Yes Education Thermal Modalities Yes Electrical Yes Stimulation Massage Yes Manual Lymphatic Yes Drainage Eval/Re-Eval Yes Frequency Times per week 2 Duration Number of Weeks 8 Addendums This patient is a No candidate for social or vocational rehab ? Patient/Guardian Yes verbally acknowledges understanding of treatment program and consents to further treatment? Patient/Guardian Yes verbally acknowledges understanding of diagnosis, prognosis and goals for treatment? Eval Complexity PT Charges 33794 - Moderate Complexity Shoulder/Elbow Eval Shoulder Objective Measurements Elbow Objective Measurements PHYSICIAN CERTIFICATION: I certify the specified therapy services for Balwinder Ramonita [place] are required, authorized, and reviewed every 30 days.
== END 2025-09-26 23:59 | disposition home or self-care (01) ==
LOC: PT 14:00
PROVIDERS: PCP Nurse Practitioner Family; Visit Provider Nurse Practitioner Family
DX: M54.50 Low back pain, unspecified (principal); M25.552 Pain in left hip; M25.551 Pain in right hip
CPT/HCPCS: 97110; 97162

== ENCOUNTER 2025-10-11 12:47 | Outpatient (RCR) | payer OTHER, SELFPAY | END 2025-10-11 23:59 | disposition home or self-care (01) | LOC: PT 12:47 | PROVIDERS: PCP Nurse Practitioner Family; Visit Provider Nurse Practitioner Family | DX: M54.16 Radiculopathy, lumbar region (principal); M25.551 Pain in right hip; M25.552 Pain in left hip | CPT/HCPCS: 97014; 97110; 97530; G0283 ==